=== PATIENT | female | born 1995 | race Caucasian/White ===

== ENCOUNTER 2017-06-14 06:46 | Emergency (ER) | payer MEDICAID ==
[~2017-06-14] VITALS: Ht 165.1 cm; Wt 70.0 kg
[~2017-06-14 06:46] MED LIST: AZIT250T PO; CYCL-1 PO; RIZA10TA27 PO
[2017-06-14 07:13] LABS: CLARITY,URINE CLEAR (Clear); COLOR,URINE YELLOW (Yellow); GLUCOSE, URINE NEGATIVE (Neg); KETONES,URINE NEGATIVE (Neg); LEUKOCYTE ESTERASE ,URINE NEGATIVE (Neg); NITRITES, URINE NEGATIVE (Neg); OCCULT BLOOD,URINE NEGATIVE (Neg); PROTEIN,URINE NEGATIVE (Neg); UA COLLECTION TYPE CLN CATCH MIDSTREAM; UROBILINOGEN,URINE 0.2 E.U/dL (0.2-1.0)
[2017-06-14 07:32] LABS: URINE HCG NEGATIVE (NEG)
[2017-06-14] MEDS ORDERED: SUMAtriptan succ. 6 MG/0.5ml vial SQ ONE (07:40)
[2017-06-14] MEDS ORDERED: proCHLORperazine 10mg tablet PO ONE (07:40)
[2017-06-14] MEDS ORDERED: acetaminophen 325mg tablet PO ONE (09:05)
[2017-06-14 09:42] VITALS: BP 114/73
== END 2017-06-14 09:44 | disposition home or self-care (01) ==
LOC: ER 06:46
DX: B34.9 Viral infection, unspecified (principal); G89.29 Other chronic pain; F17.200 Nicotine dependence, unspecified, uncomplicated; F12.10 Cannabis abuse, uncomplicated; Z79.899 Other long term (current) drug therapy
CPT/HCPCS: 81003; 81025; 87502; 87503; 93005; 96372; 99285; J3030; Q0164

== ENCOUNTER 2019-12-03 00:13 | Emergency (ER) | payer BC, MEDICAID ==
[~2019-12-03] VITALS: Ht 165.1 cm; Wt 75.5 kg
[2019-12-03 01:19] VITALS: BP 109/75
[2019-12-03] MEDS ORDERED: ketorolac trometh inj. 60 MG/2 ML VIAL IM ONE (01:25)
[2019-12-03] MEDS ORDERED: diphenhydrAMINE 25mg capsule PO ONE (01:25)
[2019-12-03] MEDS ORDERED: proCHLORperazine 10mg tablet PO ONE (01:25)
== END 2019-12-03 02:32 | disposition home or self-care (01) ==
LOC: ER 00:14
DX: R51 Headache (principal); G89.29 Other chronic pain; F41.9 Anxiety disorder, unspecified; Z90.49 Acquired absence of other specified parts of digestive tract; Z79.899 Other long term (current) drug therapy
CPT/HCPCS: 96372; 99283; J1885; Q0163; Q0164

== ENCOUNTER 2020-06-29 01:27 | Emergency (ER) | payer MEDICAID ==
[~2020-06-29] VITALS: Ht 167.6 cm; Wt 81.6 kg
[2020-06-29 01:43] VITALS: BP 141/85
[2020-06-29] MEDS ORDERED: proCHLORperazine 10mg tablet PO ONE (02:05)
[2020-06-29] MEDS ORDERED: acetaminophen 325mg tablet PO ONE (02:05)
[2020-06-29] MEDS ORDERED: diphenhydrAMINE 25mg capsule PO ONE (02:05)
--- NOTE | 2020-06-29 02:36 | NUR ---
Unable to administer medications because pt did not have a ride home. While waiting to speak to the MD about another course of action, pt called her to pick her up. Medication adminstered.
[2020-06-29] MEDS ORDERED: SUMAtriptan succ. 6 MG/0.5ml vial SQ ONE (03:00)
[2020-06-29] MEDS ORDERED: ketorolac tromethamine 15mg/ml inj. IM ONE (03:00)
[2020-06-29] MEDS ORDERED: ketorolac trometh. 30mg/ml inj. IV ONE (03:10)
== END 2020-06-29 03:46 | disposition home or self-care (01) ==
LOC: ER 01:28
DX: G43.909 Migraine, unspecified, not intractable, without status migrainosus (principal); F12.90 Cannabis use, unspecified, uncomplicated; G89.29 Other chronic pain; Z87.440 Personal history of urinary (tract) infections; Z90.49 Acquired absence of other specified parts of digestive tract; Z79.2 Long term (current) use of antibiotics; Z79.899 Other long term (current) drug therapy
CPT/HCPCS: 96372; 96374; 99284; J1885; Q0163; J3030; Q0164

== ENCOUNTER 2021-05-18 22:55 | Emergency (ER) | payer MEDICAID ==
[~2021-05-18] VITALS: Ht 167.6 cm; Wt 79.1 kg
[2021-05-18 23:09] VITALS: BP 122/81
== END 2021-05-18 23:41 | disposition home or self-care (01) ==
LOC: ER 22:56
DX: U07.1 COVID-19 (principal); M79.672 Pain in left foot; M79.671 Pain in right foot; G89.29 Other chronic pain; F41.9 Anxiety disorder, unspecified; Z87.440 Personal history of urinary (tract) infections; Z90.89 Acquired absence of other organs; Z79.2 Long term (current) use of antibiotics
CPT/HCPCS: 87635; 99283; C9803

== ENCOUNTER 2021-06-15 19:20 | Emergency (ER) | payer MEDICAID ==
[~2021-06-15] VITALS: Ht 167.6 cm; Wt 79.5 kg
[2021-06-15 19:32] VITALS: BP 134/85
[2021-06-15] MEDS ORDERED: metoclopramide 5 mg/ml inj IM ONE (20:55)
[2021-06-15] MEDS ORDERED: diphenhydrAMINE 50 mg/ml inj IM ONE (20:55)
--- NOTE | 2021-06-15 20:55 | NUR ---
PATIENT ARRIVED TO THE ER WITH COMPLAINTS OF A MIGRAINES THAT STARTED AROUND 3 PM. SHE STATES THAT SHE TOO SUMATRIPIN 100 MG . SHE HAS SENSTIVITY TO LIGHT NAUISEA HOWEVER SHE STATES THAT THE NAUSEA HAS IMPROVED.
== END 2021-06-15 21:15 | disposition home or self-care (01) ==
LOC: ER 19:21
DX: G43.909 Migraine, unspecified, not intractable, without status migrainosus (principal); G89.29 Other chronic pain; Z87.440 Personal history of urinary (tract) infections; Z90.49 Acquired absence of other specified parts of digestive tract; Z79.899 Other long term (current) drug therapy; Z79.2 Long term (current) use of antibiotics
CPT/HCPCS: 96372; 99284; J1200; J2765

== ENCOUNTER 2021-11-04 20:49 | Emergency (ER) | payer MEDICAID ==
[~2021-11-04] VITALS: Ht 167.6 cm; Wt 72.7 kg
[2021-11-04 22:01] VITALS: BP 99/51
[2021-11-04] MEDS ORDERED: dexamethasone sod phosphate 10mg/ml inj IV STA (22:29)
[2021-11-04] MEDS ORDERED: normal saline 1000ml 1,000 ML IV ONE (22:30)
[2021-11-04] MEDS ORDERED: metoclopramide 5 mg/ml inj IV ONE (22:30)
[2021-11-04] MEDS ORDERED: diphenhydrAMINE 50 mg/ml inj IV ONE (22:30)
[2021-11-04] MEDS ORDERED: ketorolac tromethamine 15mg/ml inj. IV ONE (22:30)
[2021-11-04] MEDS ORDERED: metoclopramide 10mg tablet PO ONE (22:45)
[2021-11-04] MEDS ORDERED: ketorolac tromethamine 15mg/ml inj. IM ONE (22:45)
[2021-11-04] MEDS ORDERED: diphenhydrAMINE 50 mg/ml inj IM ONE (22:45)
[2021-11-04] MEDS ORDERED: ketorolac trometh inj. 60 MG/2 ML VIAL IM ONE (22:55)
== END 2021-11-04 23:33 | disposition home or self-care (01) ==
LOC: ER 20:49
DX: G43.909 Migraine, unspecified, not intractable, without status migrainosus (principal); G89.29 Other chronic pain; M54.9 Dorsalgia, unspecified; F41.9 Anxiety disorder, unspecified; Z88.1 Allergy status to other antibiotic agents; Z79.899 Other long term (current) drug therapy
CPT/HCPCS: 96372; 99284; J1200; J1885; L3260

== ENCOUNTER 2021-12-01 09:31 | Emergency (ER) | payer MEDICAID ==
[~2021-12-01] VITALS: Ht 167.6 cm; Wt 72.7 kg
[2021-12-01 10:03] VITALS: BP 122/80
[2021-12-01] MEDS ORDERED: bacitracin 15gm ointment TP ONE (10:15)
== END 2021-12-01 10:52 | disposition home or self-care (01) ==
LOC: ER 09:32
DX: S00.31XA Abrasion of nose, initial encounter (principal); S00.512A Abrasion of oral cavity, initial encounter; G89.29 Other chronic pain; M54.9 Dorsalgia, unspecified; F41.9 Anxiety disorder, unspecified; Z79.2 Long term (current) use of antibiotics; W18.39XA Other fall on same level, initial encounter; Y93.89 Activity, other specified; Y92.89 Other specified places as the place of occurrence of the external cause; Y99.8 Other external cause status
CPT/HCPCS: 99282; J7030; A6449

== ENCOUNTER 2022-02-23 12:58 | Emergency (ER) | payer MEDICAID ==
[~2022-02-23] VITALS: Ht 167.6 cm; Wt 70.9 kg
[~2022-02-23 12:58] MED LIST changes: +RIZA-5 PO; -RIZA10TA27 PO
[2022-02-23 13:28] VITALS: BP 104/65
[2022-02-23] MEDS ORDERED: acetaminophen 325mg tablet PO ONE (13:40)
[2022-02-23] MEDS ORDERED: ketorolac trometh inj. 60 MG/2 ML VIAL IM ONE (14:45)
[2022-02-23] MEDS ORDERED: ondansetron 4mg rapidly disintigrating tab PO ONE (14:45)
[2022-02-23] MEDS ORDERED: ONDA4TAB12 PO (15:10)
--- NOTE | 2022-02-23 15:36 | NUR ---
Call to patient at this time to inform her COVID test resulted positive and to follow DC instructions for COVID precautions/treatment. Verbalized understanding.
== END 2022-02-23 15:15 | disposition home or self-care (01) ==
LOC: ER 12:58
DX: U07.1 COVID-19 (principal); G89.29 Other chronic pain; M54.9 Dorsalgia, unspecified; F41.9 Anxiety disorder, unspecified; Z79.899 Other long term (current) drug therapy
CPT/HCPCS: 87502; 87503; 87635; 96372; 99283; C9803; J1885

== ENCOUNTER 2022-03-10 00:52 | Emergency (ER) | payer MEDICAID ==
[~2022-03-10] VITALS: Ht 167.6 cm; Wt 72.4 kg
[~2022-03-10 00:52] MED LIST changes: +ONDA4TAB12 PO
[2022-03-10 00:55] VITALS: BP 113/67
[2022-03-10] MEDS ORDERED: ketorolac tromethamine 15mg/ml inj. IM ONE (03:05)
[2022-03-10] MEDS ORDERED: ondansetron 4mg rapidly disintigrating tab PO ONE (03:05)
== END 2022-03-10 03:55 | disposition home or self-care (01) ==
LOC: ER 00:53
DX: T22.112A Burn of first degree of left forearm, initial encounter (principal); G43.909 Migraine, unspecified, not intractable, without status migrainosus; G89.29 Other chronic pain; Z79.899 Other long term (current) drug therapy; M54.9 Dorsalgia, unspecified; X08.8XXA Exposure to other specified smoke, fire and flames, initial encounter; Y93.89 Activity, other specified; Y92.89 Other specified places as the place of occurrence of the external cause; Y99.8 Other external cause status
CPT/HCPCS: 96372; 99283; J1885

== ENCOUNTER 2022-03-17 03:01 | Emergency (ER) | payer MEDICAID ==
[~2022-03-17] VITALS: Ht 167.6 cm; Wt 70.6 kg
[2022-03-17] MEDS ORDERED: dexamethasone sod phosphate 10mg/ml inj IM STA (05:04)
[2022-03-17] MEDS ORDERED: diazepam 5mg tablet PO ONE ×2 (05:05→05:40)
[2022-03-17] MEDS ORDERED: proCHLORperazine 10 MG/2 ml inj IM ONE (05:05)
[2022-03-17] MEDS ORDERED: HYDROcodone/acetaminophen 10/325mg tab PO ONE ×2 (05:40→06:10)
[2022-03-17] MEDS ORDERED: ketorolac trometh. 30mg/ml inj. IM ONE (05:50)
[2022-03-17] MEDS ORDERED: ondansetron 4mg rapidly disintigrating tab PO ONE (06:10)
[2022-03-17 08:13] VITALS: BP 110/76
== END 2022-03-17 06:57 | disposition home or self-care (01) ==
LOC: ER 03:02
DX: G43.909 Migraine, unspecified, not intractable, without status migrainosus (principal); G89.29 Other chronic pain; M54.9 Dorsalgia, unspecified; F41.9 Anxiety disorder, unspecified; Z90.49 Acquired absence of other specified parts of digestive tract; Z79.899 Other long term (current) drug therapy
CPT/HCPCS: 96372; 99284; J0780; J1100; J1885

== ENCOUNTER 2022-07-19 13:04 | Emergency (ER) | payer MEDICAID ==
[~2022-07-19] VITALS: Ht 167.6 cm; Wt 64.4 kg
[2022-07-19 13:53] LABS: BASOPHILS % (AUTO) 0.7 % (0-1); EOSINOPHILS # (AUTO) 0.2 X10'3 (0-0.9); EOSINOPHILS % (AUTO) 3.7 % (0-6); HEMATOCRIT 43.9 % (35.0-45.0); HEMOGLOBIN 14.8 g/dl (12.0-16.0); LYMPHOCYTES # (AUTO) 1.6 X10'3 (1.1-4.8); LYMPHOCYTES % (AUTO) 26.8 % (21-51); MEAN CORPUSCULAR HEMOGLOBIN 27.9 PG (27.0-31.0); MEAN CORPUSCULAR HGB CONC 33.8 g/dL (33.0-36.5); MEAN CORPUSCULAR VOLUME 82.5 FL (78-98); MEAN PLATELET VOLUME 8.9 FL (7.4-10.4); MONOCYTES # (AUTO) 0.4 X10'3 (0-0.9); MONOCYTES % (AUTO) 6.3 % (2-12); NEUTROPHILS # (AUTO) 3.8 X10'3 (1.8-7.7); NEUTROPHILS % (AUTO) 62.5 % (42-75); PLATELET COUNT 187 X10'3 (140-440); RED BLOOD COUNT 5.31 X10'6 (4.20-5.60); RED CELL DISTRIBUTION WIDTH 13.4 % (11.5-14.5)
[2022-07-19 13:54] LABS: CLARITY,URINE CLEAR (Clear); COLOR,URINE YELLOW (Yellow); GLUCOSE, URINE NEGATIVE (Neg); KETONES,URINE NEGATIVE (Neg); LEUKOCYTE ESTERASE ,URINE NEGATIVE (Neg); NITRITES, URINE NEGATIVE (Neg); OCCULT BLOOD,URINE NEGATIVE (Neg); PH,URINE 7.5 (4.8-8.0); PROTEIN,URINE NEGATIVE (Neg); UROBILINOGEN,URINE 0.2 E.U/dL (0.2-1.0)
[2022-07-19 13:55] LABS: UA COLLECTION TYPE CLN CATCH MIDSTREAM; URINE HCG NEGATIVE (NEG)
[2022-07-19 14:07] LABS: ALANINE AMINOTRANSFERASE 11 U/L (12-78); ALBUMIN 4.4 G/DL (3.4-5.0); ALBUMIN/GLOBULIN RATIO 1.4 (1.1-1.5); ALKALINE PHOSPHATASE 44 IU/L (46-116); ANION GAP 8 (8-16); ASPARTATE AMINO TRANSFERASE 11 U/L (10-37); BILIRUBIN,TOTAL 0.7 MG/DL (0.1-1.0); BLOOD UREA NITROGEN 10 MG/DL (7-18); BUN/CREATININE RATIO 10.6 (10.0-20.0); CHLORIDE 105 MMOL/L (99-107); CREATININE 0.94 MG/DL (0.40-0.90); GLUCOSE 69 MG/DL (70-104); LIPASE 126 U/L (73-393); POTASSIUM 3.8 MMOL/L (3.5-5.1); SODIUM 139 MMOL/L (135-145); TOTAL CARBON DIOXIDE 26.4 MMOL/L (24-32); TOTAL PROTEIN 7.6 G/DL (6.4-8.2); eGFR 71 ML/MIN
[2022-07-19 14:12] LABS: CALCIUM 9.2 MG/DL (8.5-10.1)
[2022-07-19 14:54] VITALS: BP 99/71
== END 2022-07-19 15:56 | disposition home or self-care (01) ==
LOC: ER 13:06
DX: R10.30 Lower abdominal pain, unspecified (principal); G43.909 Migraine, unspecified, not intractable, without status migrainosus; G89.29 Other chronic pain; F41.9 Anxiety disorder, unspecified; Z90.49 Acquired absence of other specified parts of digestive tract; Z79.899 Other long term (current) drug therapy
CPT/HCPCS: 36415; 76856; 80053; 81003; 81025; 83690; 85025; 93976; 99284

== ENCOUNTER 2022-10-12 08:09 | Emergency (ER) | payer MEDICAID ==
[~2022-10-12] VITALS: Ht 167.6 cm; Wt 61.4 kg
[2022-10-12 08:15] VITALS: BP 110/74
[2022-10-12] MEDS ORDERED: ketorolac tromethamine 15mg/ml inj. IM ONE (09:30)
[2022-10-12 09:40] LABS: URINE HCG NEGATIVE (NEG)
[2022-10-12] MEDS ORDERED: CYCL-1 PO (10:45)
== END 2022-10-12 10:51 | disposition home or self-care (01) ==
LOC: ER 08:09
DX: S16.1XXA Strain of muscle, fascia and tendon at neck level, initial encounter (principal); S29.012A Strain of muscle and tendon of back wall of thorax, initial encounter; S00.212A Abrasion of left eyelid and periocular area, initial encounter; S00.81XA Abrasion of other part of head, initial encounter; G43.909 Migraine, unspecified, not intractable, without status migrainosus; G89.29 Other chronic pain; Z87.440 Personal history of urinary (tract) infections; Z79.899 Other long term (current) drug therapy; Z79.2 Long term (current) use of antibiotics; Z90.49 Acquired absence of other specified parts of digestive tract; Y04.2XXA Assault by strike against or bumped into by another person, initial encounter; Y93.89 Activity, other specified; Y92.89 Other specified places as the place of occurrence of the external cause; Y99.8 Other external cause status
CPT/HCPCS: 71045; 72040; 81025; 96372; 99284; J1885

== ENCOUNTER 2022-10-20 03:46 | Emergency (ER) | payer MEDICAID ==
[~2022-10-20] VITALS: Ht 167.6 cm; Wt 65.9 kg
[2022-10-20 03:51] VITALS: BP 98/74; PULSE 104; TEMP 97.9; O2SAT 99
[2022-10-20] MEDS ORDERED: dexamethasone 4mg/ml inj IV ONE (04:55)
[2022-10-20] MEDS ORDERED: acetaminophen 325mg tablet PO ONE (04:55)
[2022-10-20] MEDS ORDERED: ketorolac trometh. 30mg/ml inj. IV ONE (04:55)
[2022-10-20] MEDS ORDERED: proCHLORperazine 10 MG/2 ml inj IV ONE (04:55)
[2022-10-20] MEDS ORDERED: normal saline 1000ml 1,000 ML IV ONE (04:55)
[2022-10-20] MEDS ORDERED: SUMAtriptan succ. 6 MG/0.5ml vial SQ ONE (04:55)
[2022-10-20 05:50] VITALS: RESP 16
== END 2022-10-20 07:05 | disposition home or self-care (01) ==
LOC: ER 03:48
DX: G43.909 Migraine, unspecified, not intractable, without status migrainosus (principal); Z79.2 Long term (current) use of antibiotics; Z79.899 Other long term (current) drug therapy; Z98.890 Other specified postprocedural states
CPT/HCPCS: 96361; 96372; 96374; 96375; 99284; J0780; J1100; J1885; J3030; J7030

== ENCOUNTER 2022-10-31 18:59 | Emergency (ER) | payer MEDICAID ==
[~2022-10-31] VITALS: Ht 167.6 cm; Wt 63.2 kg
[2022-10-31 19:32] VITALS: BP 130/90; PULSE 106; RESP 16; TEMP 98; O2SAT 97
--- NOTE | 2022-10-31 19:45 | NUR ---
Spoke with Julian regarding patient, orders placed per verbal.
[2022-10-31 20:03] LABS: BASOPHILS % (AUTO) 0.5 % (0-1); EOSINOPHILS # (AUTO) 0.1 X10'3 (0-0.9); EOSINOPHILS % (AUTO) 1.5 % (0-6); HEMATOCRIT 41.2 % (35.0-45.0); HEMOGLOBIN 13.9 g/dl (12.0-16.0); LYMPHOCYTES % (AUTO) 26.9 % (21-51); MEAN CORPUSCULAR HEMOGLOBIN 27.7 PG (27.0-31.0); MEAN CORPUSCULAR HGB CONC 33.7 g/dL (33.0-36.5); MEAN CORPUSCULAR VOLUME 82.1 FL (78-98); MEAN PLATELET VOLUME 9.1 FL (7.4-10.4); MONOCYTES # (AUTO) 0.5 X10'3 (0-0.9); MONOCYTES % (AUTO) 6.4 % (2-12); NEUTROPHILS # (AUTO) 4.9 X10'3 (1.8-7.7); NEUTROPHILS % (AUTO) 64.7 % (42-75); PLATELET COUNT 241 X10'3 (140-440); RED BLOOD COUNT 5.03 X10'6 (4.20-5.60); RED CELL DISTRIBUTION WIDTH 13.2 % (11.5-14.5); WHITE BLOOD COUNT 7.6 X10'3 (4.5-11.0)
[2022-10-31 20:06] LABS: URINE HCG NEGATIVE (NEG)
[2022-10-31 20:09] LABS: GLUCOSE, URINE NEGATIVE (Neg); KETONES,URINE 15 mg/dl (Neg); LEUKOCYTE ESTERASE ,URINE NEGATIVE (Neg); NITRITES, URINE NEGATIVE (Neg); OCCULT BLOOD,URINE NEGATIVE (Neg); PH,URINE 5.5 (4.8-8.0); PROTEIN,URINE NEGATIVE (Neg); UROBILINOGEN,URINE 0.2 E.U/dL (0.2-1.0)
[2022-10-31 20:16] LABS: UA COLLECTION TYPE CLN CATCH MIDSTREAM
[2022-10-31 20:16] LABS: ALANINE AMINOTRANSFERASE 15 U/L (12-78); ALBUMIN 4.3 G/DL (3.4-5.0); ALBUMIN/GLOBULIN RATIO 1.3 (1.1-1.5); ALKALINE PHOSPHATASE 61 IU/L (46-116); ANION GAP 13 (8-16); ASPARTATE AMINO TRANSFERASE 10 U/L (10-37); BILIRUBIN,TOTAL 0.4 MG/DL (0.1-1.0); BLOOD UREA NITROGEN 12 MG/DL (7-18); CALCIUM 10.2 MG/DL (8.5-10.1); CHLORIDE 103 MMOL/L (99-107); GLUCOSE 112 MG/DL (70-104); POTASSIUM 3.4 MMOL/L (3.5-5.1); SODIUM 141 MMOL/L (135-145); TOTAL CARBON DIOXIDE 25.1 MMOL/L (24-32); TOTAL PROTEIN 7.7 G/DL (6.4-8.2); eGFR 67 ML/MIN
[2022-10-31 20:17] LABS: CLARITY,URINE SLIGHTLY CLOUDY (Clear); COLOR,URINE DARK YELLOW (Yellow)
[2022-10-31 20:18] LABS: LIPASE 130 U/L (73-393)
[2022-10-31 20:20] LABS: BACTERIA,URINE FEW /HPF (Neg); RBC,URINE 0-2 /HPF (0-2); SQUAMOUS EPITHELIAL CELL,UR FEW /LPF (FEW); URIC ACID CRYSTALS FEW /HPF (NEGATIVE)
[2022-10-31 20:28] LABS: ACETAMINOPHEN < 2.0 UG/ML (10-30); ETHANOL < 10 MG/DL (<10)
[2022-11-02] MEDS ORDERED: [UNRECOGNIZED DRUG - OTHER] PO (10:28)
[2022-11-02] MEDS ORDERED: QUET-1 PO (10:32)
== END 2022-11-01 02:23 | disposition left against medical advice (07) ==
LOC: ER 19:00
DX: R11.0 Nausea (principal); Z53.21 Procedure and treatment not carried out due to patient leaving prior to being seen by health care provider
CPT/HCPCS: 36415; 80053; 80320; 80329; 81001; 81025; 83690; 85025; 87088; 99281

== ENCOUNTER 2022-11-02 07:16 | Emergency (ER) | payer MEDICAID ==
[~2022-11-02] VITALS: Ht 167.6 cm; Wt 62.0 kg
[2022-11-02 07:19] VITALS: BP 128/87; PULSE 102; RESP 18; TEMP 98.1; O2SAT 98
[2022-11-02 07:53] LABS: CLARITY,URINE CLOUDY (Clear); COLOR,URINE YELLOW (Yellow); GLUCOSE, URINE NEGATIVE (Neg); KETONES,URINE NEGATIVE (Neg); LEUKOCYTE ESTERASE ,URINE NEGATIVE (Neg); NITRITES, URINE NEGATIVE (Neg); OCCULT BLOOD,URINE NEGATIVE (Neg); PROTEIN,URINE NEGATIVE (Neg); UROBILINOGEN,URINE 0.2 E.U/dL (0.2-1.0)
[2022-11-02 08:04] LABS: UA COLLECTION TYPE CLN CATCH MIDSTREAM
[2022-11-02 08:05] LABS: BACTERIA,URINE 3+ /HPF (Neg); MUCUS STRANDS FEW /LPF (Neg); SQUAMOUS EPITHELIAL CELL,UR MANY /LPF (FEW)
[2022-11-02 08:06] LABS: RBC,URINE 0-2 /HPF (0-2); WBC,URINE 0-4 /HPF (0-4)
[2022-11-02] MEDS ORDERED: normal saline 1000ml 1,000 ML IV SCH (09:10)
[2022-11-02 09:28] LABS: BASOPHILS % (AUTO) 0.5 % (0-1); EOSINOPHILS # (AUTO) 0.2 X10'3 (0-0.9); EOSINOPHILS % (AUTO) 2.1 % (0-6); HEMATOCRIT 41.2 % (35.0-45.0); HEMOGLOBIN 13.8 g/dl (12.0-16.0); LYMPHOCYTES # (AUTO) 1.4 X10'3 (1.1-4.8); LYMPHOCYTES % (AUTO) 16.9 % (21-51); MEAN CORPUSCULAR HEMOGLOBIN 27.6 PG (27.0-31.0); MEAN CORPUSCULAR HGB CONC 33.4 g/dL (33.0-36.5); MEAN CORPUSCULAR VOLUME 82.8 FL (78-98); MEAN PLATELET VOLUME 8.9 FL (7.4-10.4); MONOCYTES # (AUTO) 0.6 X10'3 (0-0.9); MONOCYTES % (AUTO) 7.2 % (2-12); NEUTROPHILS # (AUTO) 6.1 X10'3 (1.8-7.7); NEUTROPHILS % (AUTO) 73.3 % (42-75); PLATELET COUNT 185 X10'3 (140-440); RED BLOOD COUNT 4.98 X10'6 (4.20-5.60); RED CELL DISTRIBUTION WIDTH 13.2 % (11.5-14.5); WHITE BLOOD COUNT 8.4 X10'3 (4.5-11.0)
[2022-11-02 10:17] LABS: ALANINE AMINOTRANSFERASE 13 U/L (12-78); ALBUMIN 3.8 G/DL (3.4-5.0); ALBUMIN/GLOBULIN RATIO 1.3 (1.1-1.5); ALKALINE PHOSPHATASE 46 IU/L (46-116); ANION GAP 7 (8-16); ASPARTATE AMINO TRANSFERASE 10 U/L (10-37); BILIRUBIN,TOTAL 0.5 MG/DL (0.1-1.0); BLOOD UREA NITROGEN 6 MG/DL (7-18); BUN/CREATININE RATIO 5.7 (10.0-20.0); CALCIUM 9.3 MG/DL (8.5-10.1); CHLORIDE 106 MMOL/L (99-107); CREATININE 1.05 MG/DL (0.40-0.90); GLUCOSE 92 MG/DL (70-104); POTASSIUM 3.1 MMOL/L (3.5-5.1); SODIUM 141 MMOL/L (135-145); TOTAL PROTEIN 6.7 G/DL (6.4-8.2); eGFR 63 ML/MIN
[2022-11-02] MEDS ORDERED: [UNRECOGNIZED DRUG - OTHER] PO (10:28)
[2022-11-02] MEDS ORDERED: QUET-1 PO (10:32)
== END 2022-11-02 10:30 | disposition home or self-care (01) ==
LOC: ER 07:17
DX: F41.9 Anxiety disorder, unspecified (principal); G47.00 Insomnia, unspecified; G43.909 Migraine, unspecified, not intractable, without status migrainosus; G89.29 Other chronic pain; M54.59 Other low back pain; Z90.49 Acquired absence of other specified parts of digestive tract; Z79.899 Other long term (current) drug therapy
CPT/HCPCS: 36415; 80053; 81001; 85025; 99283; J7030

== ENCOUNTER 2023-02-14 05:15 | Emergency (ER) | payer MEDICAID ==
[~2023-02-14] VITALS: Ht 167.6 cm; Wt 64.1 kg
[~2023-02-14 05:15] MED LIST changes: +[UNRECOGNIZED DRUG - OTHER] PO
[2023-02-14 05:20] VITALS: BP 116/86; PULSE 86; RESP 18; TEMP 98.3; O2SAT 99
[2023-02-14] MEDS ORDERED: ketorolac trometh inj. 60 MG/2 ML VIAL IM ONE (05:45)
[2023-02-14] MEDS ORDERED: acetaminophen 325mg tablet PO ONE (05:45)
--- NOTE | 2023-02-14 07:37 | NUR ---
CALLED PT, NO ANSWER. LEFT DETAILED MESSAGE FOR AFTER CARE INSTRUCTIONS AND ENCOURAGED TO RETURN WITH WORSENING SYMPTOMS.
== END 2023-02-14 07:41 | disposition left against medical advice (07) ==
LOC: ER 05:16
DX: M79.604 Pain in right leg (principal); G43.909 Migraine, unspecified, not intractable, without status migrainosus; Z79.2 Long term (current) use of antibiotics; Z79.899 Other long term (current) drug therapy; Z98.890 Other specified postprocedural states
CPT/HCPCS: 93971; 99284

== ENCOUNTER 2023-08-16 21:03 | Emergency (ER) | payer MEDICAID ==
[~2023-08-16] VITALS: Ht 167.6 cm; Wt 68.7 kg
[2023-08-16 21:15] VITALS: BP 107/74; PULSE 80; RESP 16; TEMP 98; O2SAT 96
== END 2023-08-16 23:23 | disposition left against medical advice (07) ==
LOC: ER 21:04
DX: K08.89 Other specified disorders of teeth and supporting structures (principal); R11.0 Nausea; R51.9 Headache, unspecified; Z53.21 Procedure and treatment not carried out due to patient leaving prior to being seen by health care provider

== ENCOUNTER 2023-08-18 01:12 | Emergency (ER) | payer MEDICAID ==
[~2023-08-18] VITALS: Ht 167.6 cm; Wt 68.1 kg
[2023-08-18 01:20] VITALS: BP 103/74; PULSE 84; TEMP 98.8; O2SAT 99
[2023-08-18 01:30] VITALS: RESP 16
== END 2023-08-18 04:54 | disposition left against medical advice (07) ==
LOC: ER 01:12
DX: K08.89 Other specified disorders of teeth and supporting structures (principal); Z53.21 Procedure and treatment not carried out due to patient leaving prior to being seen by health care provider

== ENCOUNTER 2023-10-07 15:07 | Emergency (ER) | payer MEDICAID ==
[~2023-10-07] VITALS: Ht 167.6 cm; Wt 66.5 kg
[~2023-10-07 15:07] MED LIST changes: +ONDA-243 PO; -ONDA4TAB12 PO
[2023-10-07] MEDS: proCHLORperazine 10 MG/2 ml inj IM ONE (16:46)
[2023-10-07] MEDS: dexamethasone sod phosphate 10mg/ml inj IM STA (16:47)
[2023-10-07] MEDS: ketorolac trometh. 30mg/ml inj. IM ONE (16:48)
[2023-10-07 17:14] VITALS: BP 106/70; PULSE 71; RESP 16; TEMP 98.8; O2SAT 100
== END 2023-10-07 16:51 | disposition home or self-care (01) ==
LOC: ER 15:07
DX: M54.81 Occipital neuralgia (principal); G43.909 Migraine, unspecified, not intractable, without status migrainosus; G89.29 Other chronic pain; M54.9 Dorsalgia, unspecified; F41.9 Anxiety disorder, unspecified; Z90.49 Acquired absence of other specified parts of digestive tract; Z79.2 Long term (current) use of antibiotics; Z79.899 Other long term (current) drug therapy
CPT/HCPCS: 72050; 96372; 99284; J0780; J1100; J1885

== ENCOUNTER 2023-11-03 03:13 | Emergency (ER) | payer MEDICAID ==
[~2023-11-03] VITALS: Ht 167.6 cm; Wt 69.5 kg
[2023-11-03 03:30] VITALS: BP 115/80; PULSE 74; TEMP 98.2; O2SAT 100
[2023-11-03] MEDS ORDERED: HYDR-3965 PO (04:04)
[2023-11-03] MEDS: ibuprofen tablet 400 MG TABLET PO ONE (04:16)
[2023-11-03] MEDS: acetaminophen 325mg tablet PO ONE (04:17)
[2023-11-03 04:18] VITALS: RESP 19
[2023-11-03] MEDS: ondansetron 4mg rapidly disintigrating tab PO ONE (04:18)
[2023-11-03] MEDS: HYDROcodone/acetaminophen 5mg/325mg tablet PO ONE (04:18)
== END 2023-11-03 04:25 | disposition home or self-care (01) ==
LOC: ER 03:14
DX: K08.89 Other specified disorders of teeth and supporting structures (principal); G43.909 Migraine, unspecified, not intractable, without status migrainosus; G89.29 Other chronic pain; M54.9 Dorsalgia, unspecified; F41.9 Anxiety disorder, unspecified; Z79.2 Long term (current) use of antibiotics; Z79.899 Other long term (current) drug therapy; Z98.890 Other specified postprocedural states
CPT/HCPCS: 99284

== ENCOUNTER 2024-04-11 02:06 | Emergency (ER) | payer MEDICAID ==
[2024-04-11 02:15] VITALS: RESP 13
[2024-04-11 02:37] LABS: BASOPHILS # (AUTO) 0.1 X10'3 (0-0.2); BASOPHILS % (AUTO) 0.7 % (0-1); EOSINOPHILS # (AUTO) 0.3 X10'3 (0-0.9); EOSINOPHILS % (AUTO) 3.2 % (0-6); HEMATOCRIT 39.8 % (35.0-45.0); HEMOGLOBIN 13.5 g/dl (12.0-16.0); LYMPHOCYTES # (AUTO) 2.1 X10'3 (1.1-4.8); LYMPHOCYTES % (AUTO) 25.6 % (21-51); MEAN CORPUSCULAR HEMOGLOBIN 28.2 PG (27.0-31.0); MEAN PLATELET VOLUME 8.9 FL (7.4-10.4); MONOCYTES # (AUTO) 0.5 X10'3 (0-0.9); MONOCYTES % (AUTO) 5.9 % (2-12); NEUTROPHILS # (AUTO) 5.2 X10'3 (1.8-7.7); NEUTROPHILS % (AUTO) 64.6 % (42-75); PLATELET COUNT 189 X10'3 (140-440); RED CELL DISTRIBUTION WIDTH 13.2 % (11.5-14.5); WHITE BLOOD COUNT 8.1 X10'3 (4.5-11.0)
[2024-04-11 03:02] LABS: ALBUMIN 3.8 G/DL (3.4-5.0); ANION GAP 8 (8-16); BLOOD UREA NITROGEN 13 MG/DL (7-18); BUN/CREATININE RATIO 14.6 (10.0-20.0); CALCIUM 8.2 MG/DL (8.5-10.1); CHLORIDE 108 MMOL/L (99-107); CREATININE 0.89 MG/DL (0.40-0.90); FREE T4 (FREE THYROXINE) 1.02 NG/DL (0.73-1.40); GLUCOSE 95 MG/DL (70-104); POTASSIUM 3.6 MMOL/L (3.5-5.1); SODIUM 142 MMOL/L (135-145); THYROID STIMULATING HORMONE 3.02 ulU/ml (0.34-4.50); TOTAL CARBON DIOXIDE 26.5 MMOL/L (24-32); eGFR 75 ML/MIN
[2024-04-11 03:25] VITALS: BP 115/71; PULSE 87; O2SAT 99
== END 2024-04-11 03:27 | disposition home or self-care (01) ==
LOC: ER 02:07
DX: R00.2 Palpitations (principal); R07.89 Other chest pain; F41.9 Anxiety disorder, unspecified; G43.909 Migraine, unspecified, not intractable, without status migrainosus; Z90.49 Acquired absence of other specified parts of digestive tract
CPT/HCPCS: 36415; 80048; 84439; 84443; 84484; 85025; 93005; 99284

== ENCOUNTER 2024-05-03 13:33 | Emergency (ER) | payer MEDICAID ==
[~2024-05-03] VITALS: Ht 167.6 cm; Wt 70.8 kg
[2024-05-03 13:43] VITALS: BP 104/74; PULSE 84; RESP 15; TEMP 98; O2SAT 100
== END 2024-05-03 18:35 | disposition left against medical advice (07) ==
LOC: ER 13:34
DX: G43.909 Migraine, unspecified, not intractable, without status migrainosus (principal); Z53.21 Procedure and treatment not carried out due to patient leaving prior to being seen by health care provider

== ENCOUNTER 2024-06-15 21:03 | Emergency (ER) | payer MEDICAID ==
[~2024-06-15] VITALS: Ht 167.6 cm; Wt 71.2 kg
[2024-06-15 21:26] VITALS: TEMP 98.2
[2024-06-15] MEDS ORDERED: FIOCOC PO (21:34)
[2024-06-15] MEDS: HYDROcodone/acetaminophen 10/325mg tab PO ONE (22:18)
[2024-06-15] MEDS: ondansetron 4mg rapidly disintigrating tab PO ONE (22:18)
[2024-06-15] MEDS: dexamethasone sod phosphate 10mg/ml inj PO STA (22:19)
[2024-06-15] MEDS: ketorolac trometh 30MG/ML vial 30 MG/ML VIAL IM ONE (22:19)
[2024-06-15 22:46] VITALS: BP 116/79; PULSE 97; RESP 16; O2SAT 99
== END 2024-06-15 22:48 | disposition home or self-care (01) ==
LOC: ER 21:04
DX: G43.909 Migraine, unspecified, not intractable, without status migrainosus (principal); G89.29 Other chronic pain; M54.9 Dorsalgia, unspecified; F41.9 Anxiety disorder, unspecified; Z90.49 Acquired absence of other specified parts of digestive tract
CPT/HCPCS: 96372; 99284; J1100; J1885

== ENCOUNTER 2024-08-19 01:16 | Emergency (ER) | payer MEDICAID ==
[~2024-08-19] VITALS: Ht 167.6 cm; Wt 72.2 kg
[~2024-08-19 01:16] MED LIST changes: +FIOCOC PO
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
[2024-08-19] MEDS: cyclobenzaprine 10mg tablet PO ONE (02:52)
[2024-08-19] MEDS: ketorolac trometh 15mg/ml vial 15 MG/ML ML IM ONE (02:53)
[2024-08-19 03:22] VITALS: BP 100/70; PULSE 60; RESP 16; TEMP 97; O2SAT 100
== END 2024-08-19 03:24 | disposition home or self-care (01) ==
LOC: ER 01:17 → EEVIPCON 01:17 → ER 03:24
DX: S30.1XXA Contusion of abdominal wall, initial encounter (principal); S20.229A Contusion of unspecified back wall of thorax, initial encounter; G43.909 Migraine, unspecified, not intractable, without status migrainosus; F41.9 Anxiety disorder, unspecified; Z90.49 Acquired absence of other specified parts of digestive tract; W22.09XA Striking against other stationary object, initial encounter; Y93.89 Activity, other specified; Y92.89 Other specified places as the place of occurrence of the external cause; Y99.8 Other external cause status
CPT/HCPCS: 96372; 99284; J1885

== ENCOUNTER 2024-10-10 08:52 | Emergency (ER) | payer MEDICAID ==
[~2024-10-10] VITALS: Ht 167.6 cm; Wt 69.7 kg
[2024-10-10 08:54] VITALS: TEMP 98.2
--- NOTE | 2024-10-10 09:30 | Physician Documentation ---
History of Present Illness ~ Chief Complaint: Groin Pain Stated Complaint: ABD SWELLING Time Seen by MD: 09:10 Primary Medical Doctor: Job Delaney HPI 29-year-old female presents to the ED with a complaint of right inguinal pain. She adds that she also has tooth decay in the his has a developing infection.. Denies any fevers reports feeling general malaise. Says it feels like her uterus hurts.. Additionally she says she has some vaginal discharge denies any foul odors. Denies any itching or painful urination Day of Onset: Oct 10, 2024 Medication Reconciliation Allergies: Coded Allergies: No Known Allergies (Unverified , 02/14/23) Scheduled Azithromycin (Zithromax), 1 DOSPAK PO UD Codeine/Butalbit/Acetamin/Caff (Crzxkv-Rbbr-Cibquktwwan-Codein), 1 CAP PO Q12H Cyclobenzaprine* (Cyclobenzaprine*), 1 TAB PO HS [noctec], 1 CAP PO HS Scheduled PRN Cyclobenzaprine* (Cyclobenzaprine*), 1 TABLET PO Q8H PRN for muscle spasms ONDANSETRON ODT 4mg tablet (Ondansetron Odt), 1 TABLET PO Q6H PRN for nausea/vomiting Rizatriptan Benzoate (Maxalt), 10 MG PO UD PRN for headache Past Medical History Past Medical History: Headache, Migraine, UTI, Chronic Back Pain, Anxiety Past Surgical History: appendectomy Alcohol Use: None Drug Use: none Lives with: Spouse Lives In: Home Occupation: employed, student Review of Systems All Other Systems at this time: Reviewed and Negative Physical Exam Vital Signs: Temperature: 98.2, Source: Temporal, Heart Rate: 99, Respiratory Rate: 15, BP: 105/83, Pulse Oximetry: 100, Weight: 69.700 Physical Exam General: Alert, no apparent distress. neck: Respiratory: Lungs clear, no respiratory distress. Cardiovascular: Regular rate and rhythm, no murmurs. Gastrointestinal: Soft, nontender, nondistended. Bowels sounds present. genitourinary: pelvic deferred, tender lymph adenopathy right inguinal Neurologic: Oriented x4. Psychiatric: Normal mood and affect. Skin: Normal color, warm and dry. No edema, no ecchymosis. EENT: No: TM abnormal (R) Progress Results/Orders Results/Orders Orders - PEYMAN ZULETA SENIOR COMMUNICATIONS SPECIALIST Chlam/Gc Amp Ur (10/10/24 09:20) US OB (10/10/24 09:23) Completed Orders - PEYMAN ZULETA SENIOR COMMUNICATIONS SPECIALIST Hcg, Ur Ql (10/10/24 09:13) Cbc/Diff (10/10/24 09:20) BMP (10/10/24 09:20) Lipase (10/10/24 09:20) CMP (10/10/24 09:20) US OB (10/10/24 09:23) Ua W/Microscopic, Cult If Ind (10/10/24 09:08) Vital Signs 10/10/24 10/10/24 10/10/24 08:54 09:06 10:19 Temp 98.2 Pulse 99 75 Resp 15 16 B/P (MAP) 105/83 122/84 (97) Pulse Ox 100 99 O2 Flow Rate 0 Laboratory Tests Test 10/10/24 09:08 10/10/24 09:39 Urine Specimen Description Cln catch midstream Urine Color Dark yellow Urine Clarity Slightly cloudy Urine pH 6.0 Urine Specific [place] >=1.030 Urine Protein Negative Urine Glucose (UA) Negative Urine Ketones Trace H Urine Occult Blood Negative Urine Nitrite Negative Urine Bilirubin Negative Urine Urobilinogen 0.2 Urine Leukocyte Esterase Negative Urine RBC 0-2 Urine WBC 0-4 Urine Squamous Epithelial Cells Many Urine Transitional Epithelial Cells Few Urine Bacteria 1+ Urine Culture Indicated Not ind Volume Urine Centrifuged 3 ml Urine HCG, Qualitative Negative Urine Comment Low volume White Blood Count 5.6 Red Blood Count 4.91 Hemoglobin 13.6 Hematocrit 40.3 Mean Corpuscular Volume 82.0 Mean Corpuscular Hemoglobin 27.8 Mean Corpuscular Hemoglobin Concent 33.9 Red Cell Distribution Width 13.4 Platelet Count 159 Mean Platelet Volume 9.4 Neutrophils (%) (Auto) 60.0 Lymphocytes (%) (Auto) 29.2 Monocytes (%) (Auto) 7.5 Eosinophils (%) (Auto) 2.7 Basophils (%) (Auto) 0.6 Neutrophils # (Auto) 3.4 Lymphocytes # (Auto) 1.6 Monocytes # (Auto) 0.4 Eosinophils # (Auto) 0.2 Basophils # (Auto) 0.0 CBC Comment Sodium Level 132 L Potassium Level 3.4 L Chloride Level 105 Carbon Dioxide Level 26.5 Anion Gap 1 L Blood Urea Nitrogen 11 Creatinine 0.85 Estimated GFR/1.73 m2 79 BUN/Creatinine Ratio 12.9 Glucose Level 99 Calcium Level 8.6 Total Bilirubin 0.6 Aspartate Amino Transf (AST/SGOT) 13 Alanine Aminotransferase (ALT/SGPT) 22 Alkaline Phosphatase 44 L Total Protein 6.5 Albumin 3.7 Globulin 2.8 Albumin/Globulin Ratio 1.3 Lipase 44 Chemistry Comments Medical Decision Making Findings An OB ultrasound was done to rule out ovarian cysts or any other uterine pathologies that would be evident. He has intact made note that there was good flow to both ovaries in made no remarks of pelvic lymphadenopathy Patient's white count was unremarkable in her laboratory results in addition her urinalysis did not come back with any signs of infection. Upon further evaluation patient states that the pelvic area that she said was a swollen lymph node hurts more when she is walking which leads me to believe this may be musculoskeletal issue however at this time I do not see any reason to pursue further imaging. He would advise her of a close follow up if her symptoms do not resolve Urinary Diff Dx:Considerations: Include: AAA, , Aortic dissection, Appendicitis, Bowel obstruction, Cholelithiasis, Choleangitis, DJD, Ectopic , Hepatitis, HNP, Impaction, Intrauterine , Musculoskeletal pain, Ovarian torsion, Pancreatitis, PID, Post-Op complication, Pyelonephritis, Renal failure, Strain, Urinary Obstruction, Urolithiasis, Urinary retention, UTI, Vaginitis, Other Genital Diff Dx:Considerations: Include: -Complete, - Incomplete, -Inevitable, Ablortion-Missed, -Threatened, Abruptio placentae, Bartholin abscess, Bartholin cyst, Blood loss anemia, Constipation, Cervicitis, Dsymenorrhea, Ectopic , Foreign body, Hormonal, Hidradenitis suppurativa, Intrauterine , Menorrhagia, Menometrorrhagia, Menstrual bleeding, Myomatous uterus, Perianal abscess, Physiologic discharge, Pinworms, PID, Placenta previa, , Precipitous Hct, Trauma, UTI, Vaginitis(osis)-Atrophic, Vaginitis, Vaginitis(osis)-Bacterial, Vaginitis(osis)- Candidal, Vaginitis(osis)-Contact, Vaginitis(osis)-Herpes, Vaginitis(osis)- Trich., Other Departure Disposition: HOME / SELF CARE / HOMELESS Impression: Primary Impression: Nonspecific abdominal pain Condition: Stable Discharge Instructions: Strain, Muscle Additional Instructions: As I discussed your laboratory results, urinalysis and ultrasound were all unremarkable in regards to your complaint. This could be a musculoskeletal issue however I recommend following up with your manager commercial real estate or your primary care for further evaluation. Referrals: NO PRIMARY CARE PROVIDER (PCP) Signature Scribe Signature: t Attestation: Scribed for Peyman Zuleta Ink Technician by Peyman Starr NP . 10/10/24 15:04 PEYMAN ZULETA NP Oct 10, 2024 09:29
[2024-10-10 09:32] LABS: LEUKOCYTE ESTERASE ,URINE NEGATIVE (Neg); NITRITES, URINE NEGATIVE (Neg); OCCULT BLOOD,URINE NEGATIVE (Neg)
[2024-10-10 09:33] LABS: URINE HCG NEGATIVE (NEG)
[2024-10-10 09:37] LABS: UA COLLECTION TYPE CLN CATCH MIDSTREAM
[2024-10-10 09:39] LABS: SQUAMOUS EPITHELIAL CELL,UR MANY /LPF (FEW)
[2024-10-10 09:57] LABS: MEAN PLATELET VOLUME 9.4 FL (7.4-10.4); RED CELL DISTRIBUTION WIDTH 13.4 % (11.5-14.5)
[2024-10-10 10:15] LABS: CREATININE 0.85 MG/DL (0.40-0.90); TOTAL CARBON DIOXIDE 26.5 MMOL/L (24-32); eCRCL 91 ML/MIN; eGFR 79 ML/MIN
[2024-10-10 10:19] VITALS: BP 122/84; PULSE 75; RESP 16; O2SAT 99
--- NOTE | 2024-10-10 10:56 | RADIOLOGY REPORT ---
OB ULTRASOUND <14 WEEKS: HISTORY: right inguinal pain plus pelvic pain TECHNIQUE: Multiple real-time grayscale sonographic images of the pelvis with duplex Doppler color f low, spectral and M-mode analysis. TRANSDUCERS: transabdominal FINDINGS: The uterus measures 8.4 x 4.2 x 5.1 cm. The cervix not well visualized. Right ovary measures 2.8 x 1.9 x 1.7 cm with normal Doppler color flow Left ovary measures 2.3 x 1.5 x 1.6 cm with normal Doppler color flow No intrauterine is visualized. In the region of the right inguinal region, there is a 2.8 x 2.7 x 0.9 cm hypoechoic structure which may represent a lymph node. IMPRESSION: No intrauterine is visualized. Correlate beta HCG and short-term follow-up pelvic ultrasou nd. In the region of the right inguinal region, there is a 2.8 x 2.7 x 0.9 cm hypoechoic structure which may represent a lymph node. Consider correlation with CT as clinically indicated.
== END 2024-10-10 10:26 | disposition home or self-care (01) ==
LOC: ER 08:53
DX: O26.891 Other specified pregnancy related conditions, first trimester (principal); R10.31 Right lower quadrant pain; N89.8 Other specified noninflammatory disorders of vagina; K02.9 Dental caries, unspecified; G43.909 Migraine, unspecified, not intractable, without status migrainosus; F41.9 Anxiety disorder, unspecified; Z90.49 Acquired absence of other specified parts of digestive tract; Z79.899 Other long term (current) drug therapy
CPT/HCPCS: 36415; 76801; 80053; 81001; 81025; 83690; 85025; 99284

== ENCOUNTER 2024-10-29 22:34 | Emergency (ER) | payer MEDICAID ==
[~2024-10-29] VITALS: Ht 167.6 cm; Wt 69.5 kg
--- NOTE | 2024-10-30 03:58 | Physician Documentation ---
History of Present Illness ~ Chief Complaint: Headache Stated Complaint: MIGRAIN Time Seen by MD: 03:57 OK to notify your PCP?: Yes Primary Medical Doctor: Job Delaney Source: patient, RN/, RN notes reviewed, old records Mode of Arrival: POV, Dropped Off Exam Limitations: no limitations HPI 29 year old female with migraine history seen in bed 11 presents to the emergency department complaining of migraines that began last night. She states that her headache had worsened when she woke up this morning. She states she sees a neurologist and is receiving botox injections for her pain. She states she has been using ice and heat to treat her migraines. Medication Reconciliation Allergies: Coded Allergies: No Known Allergies (Unverified , 10/29/24) Scheduled Azithromycin (Zithromax), 1 DOSPAK PO UD Codeine/Butalbit/Acetamin/Caff (Hhkucd-Vnyt-Cerllntzyde-Codein), 1 CAP PO Q12H Cyclobenzaprine* (Cyclobenzaprine*), 1 TAB PO HS [noctec], 1 CAP PO HS Scheduled PRN Cyclobenzaprine* (Cyclobenzaprine*), 1 TABLET PO Q8H PRN for muscle spasms ONDANSETRON ODT 4mg tablet (Ondansetron Odt), 1 TABLET PO Q6H PRN for kallie sea/vomiting Rizatriptan Benzoate (Maxalt), 10 MG PO UD PRN for headache Past Medical History Past Medical History: Headache, Migraine, UTI, Chronic Back Pain, Anxiety Past Surgical History: appendectomy Alcohol Use: None Drug Use: none Lives with: Spouse Lives In: Home Occupation: employed, student Review of Systems All Other Systems at this time: Reviewed and Negative ROS As stated above in the HPI, otherwise all systems are reviewed and negative. Physical Exam Vital Signs: RN Vital Signs have been reviewed: Yes, Temperature: 98.0, Source: Temporal, Heart Rate: 94, Respiratory Rate: 16, BP: 112/68, Pulse Oximetry: 99, Weight: 69.450 Oxygen Flow Rate: 0 Pulse Oximetry Reflects: adequate oxygenation Physical Exam General: Patient is uncomfortable. The patient is well developed, well nourished, nontoxic appearing and is in no acute distress. Skin: [place], warm and dry with no rashes. HEENT: Head was normocephalic and atraumatic. Eyes - pupils equal, round, reactive to light and accommodation. Extraocular movements were intact. Conjunctivae were nonicteric. Ears - bilateral tympanic membranes were normal. The mouth and oropharynx were clear with moist mucous membranes. There were no pharyngeal exudates or erythema. Neck: Left neck paraspinal tenderness. Supple and nontender. There was no jugular venous distention, lymphadenopathy, thyromegaly or masses. Chest: Clear to auscultation bilaterally without wheezes, rales or rhonchi. No accessory muscle use. No dullness to percussion. Heart: Rate regular and rhythmic. S1, S2. No murmurs. Palpation of the chest wall was normal. No rubs or thrills. Abdomen: Soft, nontender and nondistended. Positive bowel sounds. No guarding or rebound. No hepatosplenomegaly or palpable masses. Extremities: No cyanosis, clubbing or edema. The patient moves all extremities. Pulses were equal and symmetric. Neurologic: Cranial nerves II-XII were intact. Sensation was intact to light touch throughout. Motor strength was 5/5 in all four extremities. Deep tendon reflexes were intact in both upper and lower extremities. Psychologic: The patient was oriented to person, place and time. The patient demonstrated appropriate judgement and insight. Progress Results/Orders Reviewed/noted all lab results: Yes Results/Orders Completed Orders - SULEIMAN JORDAN MD Prochlorperazine Inj (Compazine Inj) (10/30/24 04:00) Ketorolac Trometh 15mg/Ml Vial (Toradol (10/30/24 04:00) Morphine 2mg/Ml Inj. (Morphine Inj.) (10/30/24 04:00) Normal Saline 1000ml (0.9% Sodium Chlori (10/30/24 04:00) Dexamethasone Inj (Decadron 10mg/Ml Inj) (10/30/24 03:58) Sumatriptan Succ. Inj. (Imitrex 6mg Inj. (10/30/24 04:00) Vital Signs 10/29/24 10/30/24 10/30/24 10/30/24 22:45 02:44 02:48 04:26 Temp 98.0 Pulse 91 94 Resp 16 16 16 16 B/P (MAP) 103/67 112/68 (83) Pulse Ox 98 99 O2 Flow Rate 0 0 10/30/24 04:52 Temp 98.4 Pulse 96 Resp 16 B/P (MAP) 114/75 Pulse Ox 100 Re-Evaluation Re-Evaluation : Re-Evaluation: Improved Progress Patient was seen and examined. Patient is given reassurance. Patient was found to have her chronic headaches. She was offered multiple medications she was ordered Compazine Toradol morphine Imitrex she Decadron as well as fluids. Patient did refused a steroids. Patient was given fluids feeling much better after the fluids requested to go home. Patient has chronic headaches there is no new symptoms no signs of infection no meningeal signs no possible intracranial bleed no need for CAT scan. Patient has improved and was requesting to be discharged. Continuous marine extension agent interpretation shows normal sinus rhythm heart rate 90s, no ectopy, normal, my interpretation. Pulse oximetry monitor interpretation shows normal oxygenation at 99% room air, normal, my interpretation. Medical Decision Making Additional info obtained from: old records Differential Dx:Considerations: Include: RODRIGUEZ-Cluster, RODRIGUEZ-Migraine, RODRIGUEZ- Hypertensive, RODRIGUEZ-Muscular contraction, RODRIGUEZ-Post lumbar puncture, Carbon monoxide toxicity, Close head injuyr, CVA, Hemorrhage-Epidural, Hemorrhage-Intracerebral, Hemorrhage-Subarachnoid, Hemorrhage-Subdural, Mass lesion, Meningitis, Pseudotumor cerebri, Sinusitis, Other Departure Disposition: 01 HOME / SELF CARE / HOMELESS Impression: Primary Impression: Migraine Qualified Codes: G43.909 - Migraine, unspecified, not intractable, without status migrainosus Additional Impression: Neck pain Condition: Stable Discharge Instructions: Migraine Headache Referrals: NO PRIMARY CARE PROVIDER (PCP) Prescriptions Codeine/Butalbit/Acetamin/Caff (Ldkeap-Oihs-Ewoclvygvee-Codein) 50 Mg-325 Mg-40 Mg-30 Mg Capsule 1 CAP PO Q12H for headache for 30 Days, #60 CAP 0 Refills FALL RISK Prov: SULEIMAN JORDAN MD 10/30/24 Education Educated: Patient Educated regarding: diagnosis, treatment, prognosis, need for follow up Signature Scribe Signature: Scribed for Suleiman Jordan MD by Aleta Hagen . 10/30/24 04:19 Attestation: The note accurately reflects work and decisions made by me.Suleiman Jordan MD 10/30/24 03:58 SULEIMAN JORDAN MD Oct 30, 2024 03:58 ALETA YOU Oct 30, 2024 04:19
[2024-10-30] MEDS ORDERED: FIOCOC PO (04:13)
[2024-10-30] MEDS: dexamethasone sod phosphate 10mg/ml inj IV STA (04:24)
[2024-10-30] MEDS: ketorolac trometh 15mg/ml vial 15 MG/ML ML IV ONE (04:26)
[2024-10-30] MEDS: normal saline 1000ML IV soln IVB ONE (04:27)
[2024-10-30] MEDS: SUMAtriptan succ. 6 MG/0.5ml vial SQ ONE (04:27)
[2024-10-30 04:52] VITALS: BP 114/75; PULSE 96; RESP 16; TEMP 98.4; O2SAT 100
== END 2024-10-30 04:57 | disposition home or self-care (01) ==
LOC: ER 22:35
DX: G43.909 Migraine, unspecified, not intractable, without status migrainosus (principal); M54.2 Cervicalgia; F41.9 Anxiety disorder, unspecified; Z90.49 Acquired absence of other specified parts of digestive tract
CPT/HCPCS: 96374; 96375; 99284; J0780; J1885; J7030